=== PATIENT | female | born 1995 | race Caucasian/White ===

== ENCOUNTER 2017-10-13 11:53 | Emergency (ER) | payer MEDICAID ==
[~2017-10-13] VITALS: Ht 160 cm; Wt 61.0 kg
[2017-10-13 11:59] VITALS: BP 128/86
== END 2017-10-13 19:20 | disposition left against medical advice (07) ==
LOC: ER 13:12
DX: Z53.21 Procedure and treatment not carried out due to patient leaving prior to being seen by health care provider (principal)

== ENCOUNTER 2018-10-08 21:37 | Inpatient (IN) | payer MEDICAID ==
[~2018-10-08] VITALS: Ht 157.5 cm; Wt 80.7 kg
[2018-10-08] MEDS ORDERED: DEXT 5%/LR + PITOCIN 20UNITS/L 1,000 ML IV SCH (22:16)
[2018-10-08] MEDS ORDERED: BUTORPHANOL TARTRATE 2 MG/ML VIAL IV PRN (22:30)
[2018-10-08] MEDS ORDERED: LIDOCAINE HCL 1% 20ML VIAL (Pyxis) INJ INFIL SCH (22:30)
[2018-10-08 23:06] LABS: BASOPHILS % 0.3 % (0.0-2.0); EOSINOPHILS % 0.4 % (0.0-5.0); HEMATOCRIT. 35.6 % (36.0-48.0); HEMOGLOBIN. 12.3 g/dL (12.0-16.0); LYMPHOCYTES % 19.5 % (20.0-50.0); MEAN CORPUSCULAR HEMOGLOBIN 31.5 pg (28.0-32.0); MEAN CORPUSCULAR VOLUME 91.4 fL (81.0-99.0); MEAN PLATELET VOLUME 10.2 fl (7.4-10.4); MONOCYTES % 7.9 % (2.0-8.0); NEUTROPHILS % 71.9 % (40.0-76.0); PLATELET 208 x1000/uL (130-400); RED BLOOD CELL COUNT 3.89 mill/uL (4.2-5.4); RED CELL DISTRIBUTION WIDTH 13.5 % (11.6-14.6)
[2018-10-08 23:07] LABS: CLARITY URINE TURBID (CLEAR); COLOR URINE YELLOW (YELLOW); KETONES URINE NEGATIVE (NEGATIVE); LEUKOCYTE ESTERASE URINE NEGATIVE (NEGATIVE); NITRITE URINE NEGATIVE (NEGATIVE); OCCULT BLOOD URINE 2+ (NEGATIVE); PROTEIN URINE 2+ (NEGATIVE); SPECIFIC GRAVITY URINE 1.016 (1.005-1.030); UROBILINOGEN URINE 0.2 E.U./dL (0.2-1.0)
[2018-10-08 23:20] LABS: CHLORIDE 110 mEq/L (98-107)
[2018-10-08 23:25] LABS: *AMPHETAMINES SCREEN URINE NEGATIVE (NEGATIVE); *BARBITURATES SCREEN URINE NEGATIVE (NEGATIVE); *BENZODIAZEPINES SCREEN URINE NEGATIVE (NEGATIVE); *COCAINE SCREEN URINE NEGATIVE (NEGATIVE)
[2018-10-08 23:26] LABS: CANNABINOID URINE SCREEN NEGATIVE (NEGATIVE); METHADONE URINE SCREEN NEGATIVE (NEGATIVE); OPIATES URINE SCREEN NEGATIVE (NEGATIVE); PHENCYCLIDINE URINE SCREEN NEGATIVE (NEGATIVE)
[2018-10-08 23:43] LABS: D-DIMER 1.83 mg/L FEU (<0.50); INR 0.9; PARTIAL THROMBOPLASTIN TIME 25.8 sec (23.4-31.0)
[2018-10-09 00:14] LABS: PROTHROMBIN TIME 8.8 sec (9.1-11.1)
[2018-10-09] MEDS ORDERED: PENICILLIN G POTASSIUM 5 MMU in DEXT 5% WATER 100 ML IV SCH (01:00)
[2018-10-09 01:21] LABS: HEPATITIS B SURFACE ANTIGEN NEGATIVE
[2018-10-09] MEDS: LACTATED RINGERS 1,000 ML IV SCH ×3 (04:44→22:55)
[2018-10-09] MEDS ORDERED: ACETAMINOPHEN 650MG/20.3ML UDC PO PRN (07:45)
[2018-10-09] MEDS: PENICILLIN G POTASSIUM 2.5 MMU in DEXTROSE 5% WATER 50 ML IV SCH ×4 (08:30→19:58)
[2018-10-09] MEDS: PRENATAL VIT/FE FUMARATE/FA TABLET PO SCH (08:44)
[2018-10-09] MEDS: DOCUSATE SODIUM 100MG CAPSULE PO SCH ×2 (08:44→19:57)
[2018-10-10] MEDS: PENICILLIN G POTASSIUM 2.5 MMU in DEXTROSE 5% WATER 50 ML IV SCH ×6 (00:09→22:10)
[2018-10-10] MEDS: LACTATED RINGERS 1,000 ML IV SCH ×2 (06:45→16:00)
[2018-10-10] MEDS: PRENATAL VIT/FE FUMARATE/FA TABLET PO SCH (09:49)
[2018-10-10] MEDS: DOCUSATE SODIUM 100MG CAPSULE PO SCH ×2 (09:49→17:11)
[2018-10-11] MEDS: LACTATED RINGERS 1,000 ML IV SCH ×4 (02:58→18:39)
[2018-10-11] MEDS: PENICILLIN G POTASSIUM 2.5 MMU in DEXTROSE 5% WATER 50 ML IV SCH ×4 (02:59→17:04)
[2018-10-11 07:39] LABS: BASOPHILS % 0.4 % (0.0-2.0); EOSINOPHILS % 0.4 % (0.0-5.0); HEMATOCRIT. 37.3 % (36.0-48.0); HEMOGLOBIN. 12.6 g/dL (12.0-16.0); LYMPHOCYTES % 22.5 % (20.0-50.0); MEAN CORPUSCULAR HEMOGLOBIN 30.8 pg (28.0-32.0); MEAN CORPUSCULAR VOLUME 91.1 fL (81.0-99.0); MEAN PLATELET VOLUME 9.7 fl (7.4-10.4); MONOCYTES % 7.5 % (2.0-8.0); NEUTROPHILS % 69.2 % (40.0-76.0); PLATELET 213 x1000/uL (130-400); RED CELL DISTRIBUTION WIDTH 13.2 % (11.6-14.6)
[2018-10-11 07:47] LABS: INR 0.9; PARTIAL THROMBOPLASTIN TIME 26.6 sec (23.4-31.0); PROTHROMBIN TIME 9.4 sec (9.1-11.1)
[2018-10-11] MEDS ORDERED: BUPIVACAINE HCL/NS/PF EPIDURAL 100 ML EP SCH (08:45)
[2018-10-11] MEDS: DOCUSATE SODIUM 100MG CAPSULE PO SCH ×2 (09:00→17:00)
[2018-10-11] MEDS ORDERED: LABETALOL HCL 5MG/ML VIAL 20ML IV ONE (15:44)
[2018-10-11] MEDS ORDERED: HYDRALAZINE 20MG/ML VIAL IV PRN (15:45)
[2018-10-11] MEDS ORDERED: LABETALOL HCL 5MG/ML VIAL 20ML IV PRN ×3 (15:45)
[2018-10-11] MEDS ORDERED: MAGNESIUM 20 G PREMIX (L & D) 500 ML IV SCH (16:05)
[2018-10-11 17:18] LABS: CLARITY URINE CLEAR (CLEAR); COLOR URINE YELLOW (YELLOW); KETONES URINE 1+ (NEGATIVE); LEUKOCYTE ESTERASE URINE NEGATIVE (NEGATIVE); NITRITE URINE NEGATIVE (NEGATIVE); OCCULT BLOOD URINE 2+ (NEGATIVE); PROTEIN URINE NEGATIVE (NEGATIVE); SPECIFIC GRAVITY URINE 1.012 (1.005-1.030)
[2018-10-11 17:22] LABS: CHLORIDE 105 mEq/L (98-107)
[2018-10-11 17:50] LABS: D-DIMER 2.15 mg/L FEU (<0.50)
[2018-10-11] MEDS ORDERED: DEXT 5%/LR + PITOCIN 20UNITS/L 1,000 ML IV SCH (19:29)
[2018-10-11] MEDS ORDERED: RHO(D) IMMUNE GLOBULIN 300 MCG/SYR IM PRN (19:30)
[2018-10-11] MEDS ORDERED: DIPHENHYDRAMINE 25MG CAPSULE PO PRN (19:30)
[2018-10-11] MEDS ORDERED: LANOLIN OINT 0.25 GM TUBE TOP PRN (19:30)
[2018-10-11] MEDS ORDERED: IBUPROFEN 400MG TABLET PO PRN (19:30)
[2018-10-11 20:15] VITALS: BP 134/83
[2018-10-11] MEDS: IBUPROFEN 800MG TABLET PO PRN (21:03)
[2018-10-12] VITALS: BP 124/78
[2018-10-12 07:57] LABS: BASOPHILS % 0.2 % (0.0-2.0); HEMATOCRIT. 29.3 % (36.0-48.0); HEMOGLOBIN. 9.9 g/dL (12.0-16.0); MEAN CORPUSCULAR VOLUME 92.1 fL (81.0-99.0); MEAN PLATELET VOLUME 9.9 fl (7.4-10.4); MONOCYTES % 8.8 % (2.0-8.0); PLATELET 191 x1000/uL (130-400); RED BLOOD CELL COUNT 3.18 mill/uL (4.2-5.4); RED CELL DISTRIBUTION WIDTH 13.6 % (11.6-14.6)
[2018-10-12 08:00] VITALS: BP 130/90
[2018-10-12] MEDS: PRENATAL VIT/FE FUMARATE/FA TABLET PO SCH (08:48)
[2018-10-12] MEDS: IBUPROFEN 800MG TABLET PO PRN (08:48)
[2018-10-12] MEDS: DOCUSATE SODIUM 100MG CAPSULE PO SCH ×2 (09:00→18:09)
[2018-10-12 12:00] VITALS: BP 129/89
[2018-10-12 15:57] VITALS: BP 131/91
[2018-10-12 22:00] VITALS: BP 132/85
[2018-10-13 05:35] VITALS: BP 129/80
[2018-10-13 07:44] VITALS: BP 118/91
[2018-10-13] MEDS: PRENATAL VIT/FE FUMARATE/FA TABLET PO SCH (08:33)
[2018-10-13] MEDS: DOCUSATE SODIUM 100MG CAPSULE PO SCH (08:34)
== END 2018-10-13 11:30 | disposition home or self-care (01) | DRG 560 ==
LOC: 8 EST LDRP 21:37 → OBSVTOIN 21:37 → 8 EST A/PP 10-10 07:50 → 8 EST LDRP 10-11 00:09 → 8EST 10-11 23:38
PROVIDERS: ADMIT Specialist; ATTEND Specialist
PROC: 10E0XZZ Delivery of Products of Conception, External Approach (ICD-10-PCS; principal; 2018-10-11)
PROC: 3E0R3BZ Introduction of Anesthetic Agent into Spinal Canal, Percutaneous Approach (ICD-10-PCS; 2018-10-11)
PROC: 00HU33Z Insertion of Infusion Device into Spinal Canal, Percutaneous Approach (ICD-10-PCS; 2018-10-11)
DX: O42.913 Preterm premature rupture of membranes, unspecified as to length of time between rupture and onset of labor, third trimester (principal); O60.14X0 Preterm labor third trimester with preterm delivery third trimester, not applicable or unspecified; D62 Acute posthemorrhagic anemia; O69.81X0 Labor and delivery complicated by cord around neck, without compression, not applicable or unspecified; O13.4 Gestational [pregnancy-induced] hypertension without significant proteinuria, complicating childbirth; O90.81 Anemia of the puerperium; Z37.0 Single live birth; Z3A.36 36 weeks gestation of pregnancy
CPT/HCPCS: 36415; 76805; 76818; 80305; 82575; 83735; 84156; 84450; 84460; 84550; 85379; 85384; 86592; 86703; 86762; 86850; 86900; 87070; 87340; 99281; G0378; J2540; J2590; J3475; J3490; J7060; J7120; A4315